=== PATIENT | female | born 1985 | race Caucasian/White ===

== ENCOUNTER 2016-09-30 11:30 | Emergency (ER) | payer BC, OTHER ==
[2016-09-30 11:48] VITALS: TEMP 98.2; BMI 18.8
--- NOTE | 2016-09-30 12:08 | PDOC ---
History of Present Illness - General Chief Complaint: Chest Pain Stated Complaint: CHEST PAIN Time Seen by Provider: 09/30/16 11:42 History Source: Patient Exam Limitations: No Limitations - History of Present Illness Initial Comments: 31 yo F prior history of lumpectomy, OCP use presents with chest pain x2 days. She states that she has recently had neck pain, worse when she goes running. Today she noted that it was radiating around to her chest, associated with pain on deep inspiration. 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 She took aleve without relief. She was unable to sleep last night due to her symptoms. She denies any recent lower extremity swelling. No recent travel or immobilization. No cough, fever. No SOB at rest. Past History - Past Medical History Allergies/Adverse Reactions: Allergies Allergy/AdvReac Type Severity Reaction Status Date / Time Penicillins Allergy Verified 09/30/16 11:34 Home Medications: Ambulatory Orders Control Pill 1 tab PO DAILY 09/30/16 Ibuprofen [Motrin -] 600 mg PO TID PRN #21 tablet 09/30/16 Naproxen Sodium [Aleve] 440 mg PO PRN PRN 09/30/16 Oxycodone HCl/Acetaminophen [Percocet 5-325 mg Tablet] 1 tab PO HS PRN #4 tablet MDD 1 tab 09/30/16 Other medical history: DENIES - Psycho/Social/Smoking Cessation Hx Anxiety: No Suicidal Ideation: No Smoking History: Never smoked Have you smoked in the past 12 months: No Information on smoking cessation initiated: No Hx Alcohol Use: No Drug/Substance Use Hx: No Substance Use Type: None Review of Systems - Review of Systems Able to Perform ROS?: Yes Comments:: GENERAL/CONSTITUTIONAL: No fever or chills. No weakness. HEAD, EYES, EARS, NOSE AND THROAT: No change in vision. No ear pain or discharge. No sore throat. CARDIOVASCULAR: +Chest pain. +Exertional shortness of breath. RESPIRATORY: No cough, wheezing, or hemoptysis. GASTROINTESTINAL: No nausea, vomiting, diarrhea or constipation. GENITOURINARY: No dysuria, frequency, or change in urination. MUSCULOSKELETAL: No joint or muscle swelling or pain. No neck or back pain. SKIN: No rash NEUROLOGIC: No headache, vertigo, loss of consciousness, or change in strength/ sensation. ENDOCRINE: No increased thirst. No abnormal weight change. HEMATOLOGIC/LYMPHATIC: No anemia, easy bleeding, or history of blood clots. ALLERGIC/IMMUNOLOGIC: No hives or skin allergy. *Physical Exam - Vital Signs Last Vital Signs Temp Pulse Resp BP Pulse Ox 98.2 F 94 H 20 126/80 100 09/30/16 11:30 09/30/16 11:30 09/30/16 11:30 09/30/16 11:30 09/30/16 11:30 - Physical Exam Comments: GENERAL: Awake, alert, and fully oriented, in no acute distress HEAD: No signs of trauma EYES: PERRLA, EOMI, sclera anicteric, conjunctiva clear ENT: Auricles normal inspection, hearing grossly normal, nares patent, oropharynx clear without exudates. Moist mucosa NECK: Normal ROM, supple, no lymphadenopathy, JVD, or masses LUNGS: Breath sounds equal, clear to auscultation bilaterally. No wheezes, and no crackles HEART: Regular rate and rhythm, normal S1 and S2, no murmurs, rubs or gallops ABDOMEN: Soft, nontender, normoactive bowel sounds. No guarding, no rebound. No masses EXTREMITIES: Normal range of motion, no edema. No clubbing or cyanosis. No cords, erythema, or tenderness NEUROLOGICAL: Cranial nerves II through XII grossly intact. Normal speech, normal gait SKIN: Warm, Dry, normal turgor, no rashes or lesions noted. ED Treatment Course - LABORATORY CBC & Chemistry Diagram: 09/30/16 12:30 09/30/16 12:30 Medical Decision Making - Medical Decision Making 09/30/16 14:27 On initial assessment, patient was well-appearing, speaking full sentences, but intermittently pausing to take a breath. Based on clinical suspicion, as well as history of OCP use, pretest probability for PE was high. Labs were sent, CTA obtained. Negative for PE. She later noted that her pain seems to be worse upon lying down, and indeed, I was able to reproduce it in the ED. 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 Will treat with NSAIDs for pain, percocet for breakthrough at night. Encouraged her to f/u with her PMD in the next 2-3 days if it does not improve. *DC/Admit/Observation/Transfer Diagnosis at time of Disposition: Chest pain Qualifiers: Chest pain type: chest pain on breathing Qualified Code(s): R07.1 - Chest pain on breathing - Discharge Dispostion Disposition: HOME Condition at time of disposition: Stable Admit: No - Prescriptions Prescriptions: Ibuprofen [Motrin -] 600 mg PO TID PRN #21 tablet PRN Reason: Pain Oxycodone HCl/Acetaminophen [Percocet 5-325 mg Tablet] 1 tab PO HS PRN #4 tablet MDD 1 tab PRN Reason: Severe Pain - Patient Instructions Printed Discharge Instructions: DI for Pericarditis, DI for Atypical Chest Pain Additional Instructions: Motrin 600 mg every 8 hours as needed for pain. Take percocet if you have breakthrough pain- do not take it if you plan to drive or operate heavy machinery.
[2016-09-30] MEDS ORDERED: SODIUM CHLORIDE 1,000 ML IV STA (12:16)
[2016-09-30 12:57] VITALS: BP 144/84; PULSE 85
[2016-09-30 13:00] LABS: ALBUMIN 4.5 g/dl (3.5-5.0); ALK PHOS 37 U/L (32-92); ANION GAP 9 (8-16); BILIRUBIN,TOTAL 1.2 mg/dl (0.2-1.0); CALCIUM 9.5 mg/dl (8.4-10.2); CO2 25 mmol/L (22-28); CPK(DFH) 112 IU/L (26-140); CREATININE 0.8 mg/dl (0.6-1.3); GLUCOSE,RANDOM 85 mg/dl (74-106); SGOT/AST 18 U/L (10-42); SGPT/ALT 12 U/L (10-40); TOT PROT 7.4 g/dl (6.4-8.3)
[2016-09-30 13:10] LABS: BASOPHIL 0.3 % (0-2.0); EOSINOPHIL 0.4 % (0-4.5); MCH 29.2 pg (25.7-33.7); MCHC 34.1 g/dl (32.0-36.0); MEAN CELL VOLUME 85.6 fl (80-96); MEAN PLT VOLUME 10.9 fl (7.5-11.1); NEUTROPHILS 67.8 % (42.8-82.8); PLATELET COUNT 193 K/MM3 (134-434); RDW 12.1 % (11.6-15.6); WHITE BLOOD COUNT 9.8 K/mm3 (4.0-10.8)
[2016-09-30 13:16] LABS: INR 1.07 (0.82-1.09)
[2016-09-30] MEDS ORDERED: KETOROLAC TROMETHAMINE 30 MG/1 ML VIAL IVPUSH ONE (13:16)
[2016-09-30] MEDS ORDERED: KETOROLAC TROMETHAMINE 30 MG/1 ML VIAL ONE (13:28)
[2016-09-30 13:33] LABS: TROPONIN I (DFP) < 0.03 ng/ml (0.03-0.50)
--- NOTE | 2016-10-01 12:07 | EKG ---
Test Reason : Blood Pressure : / mmHG Vent. Rate : 086 BPM Atrial Rate : 086 BPM P-R Int : 132 ms QRS Dur : 096 ms QT Int : 362 ms P-R-T Axes : 054 -17 032 degrees QTc Int : 433 ms SINUS RHYTHM WITH SINUS ARRHYTHMIA POSSIBLE LEFT ATRIAL ENLARGEMENT INCOMPLETE RIGHT BUNDLE BRANCH BLOCK BORDERLINE ECG NO PREVIOUS ECGS AVAILABLE Confirmed by JAIRO JOSEPH MD ([id number] on 10/01/2016 12:07:14 PM Referred By: TONIA LOCKHART Confirmed By:JAIRO JOSEPH MD
== END 2016-09-30 14:52 | disposition home or self-care (01) ==
LOC: FER 11:30
PROC: 3E033GC Introduction of Other Therapeutic Substance into Peripheral Vein, Percutaneous Approach (ICD-10-PCS; principal; 2016-09-30)
PROC: 3E0337Z Introduction of Electrolytic and Water Balance Substance into Peripheral Vein, Percutaneous Approach (ICD-10-PCS; 2016-09-30)
DX: R07.1 Chest pain on breathing (principal)
CPT/HCPCS: 36415; 71275-TC; 80053; 82550; 84484; 84703; 85025; 85610; 93005; 99285-25

== ENCOUNTER 2020-04-04 14:52 | Emergency (ER) | payer BC | END 2020-04-04 15:19 | disposition home or self-care (01) | LOC: JVIRT 14:52 | DX: Z03.818 Encounter for observation for suspected exposure to other biological agents ruled out (principal); J06.9 Acute upper respiratory infection, unspecified | CPT/HCPCS: 87804; C9803; Q3014-GT; U0003 ==